=== PATIENT | female | born 1945 | race Caucasian/White ===

== ENCOUNTER 2020-04-17 11:15 | Outpatient (CLI) | payer MEDICARE, SELFPAY ==
--- NOTE | ~2020-04-17 | XR_ITS ---
EXAMINATION: XR knee LT 3V DATE: 04/17/2020 11:46 INDICATION: Left knee pain. TECHNIQUE: 3 views of left knee were obtained. COMPARISON: None. FINDINGS: Bone alignment is normal. No fracture. There is moderate osteoarthritis of medial and ring lofemoral compartments and mild osteoarthritis of lateral compartment. There is chondrocalcinosis of the menisci. No knee joint effusion. IMPRESSION: 1. Moderate left knee osteoarthritis. Reviewed, dictated and finalized at location A.
== END 2020-04-17 11:16 | disposition home or self-care (01) ==
PROVIDERS: PCP Family Medicine; Visit Provider Family Medicine
DX: M25.569 Pain in unspecified knee (principal); M17.12 Unilateral primary osteoarthritis, left knee
CPT/HCPCS: 73562

== ENCOUNTER 2020-04-25 14:01 | Outpatient (CLI) | payer MEDICARE, SELFPAY ==
--- NOTE | ~2020-04-25 | MM_ITS ---
EXAMINATION: MM screening elana BI w adwoa HISTORY: Screening mammogram TECHNIQUE: Craniocaudal and mediolateral oblique 3-D tomosynthesis images were obtained and synthetic 2-D images were generated. CAD analysis was submitted and interpreted. COMPARISON: 04/22/2019, 04/06/2018, 04/03/2017 bilateral digital screening mammogram examinations BREAST PARENCHYMAL COMPOSITION: There are scattered areas of fibroglandular density. FINDINGS: Scattered benign-appearing calcifications are present. Stable mild fibroglandular asymmetry . There is no evidence of suspicious mass, calcification, or architectural distortion to suggest diane gnancy in either breast. There has been no suspicious interval change. IMPRESSION: 1. No mammographic evidence of malignancy. 2. Recommend routine screening mammography in one year. BI-RADS Category 2: Benign finding(s). Reviewed, dictated and finalized at location A.
== END 2020-04-25 14:02 | disposition home or self-care (01) ==
LOC: ANHIMG 14:04
PROVIDERS: PCP Family Medicine; Visit Provider Family Medicine
DX: Z12.31 Encounter for screening mammogram for malignant neoplasm of breast (principal)
CPT/HCPCS: 77063; 77067

== ENCOUNTER 2020-09-18 14:43 | Outpatient (CLI) | payer MEDICARE, SELFPAY | END 2020-09-18 14:44 | disposition home or self-care (01) | LOC: ANHCOVIDVC 14:44 | PROVIDERS: PCP Family Medicine | DX: Z23 Encounter for immunization (principal) | CPT/HCPCS: 0001A; 91300 ==

== ENCOUNTER 2020-10-09 14:45 | Outpatient (CLI) | payer MEDICARE, SELFPAY | END 2020-10-09 14:46 | disposition home or self-care (01) | LOC: ANHCOVIDVC 14:45 | PROVIDERS: PCP Family Medicine | DX: Z23 Encounter for immunization (principal) | CPT/HCPCS: 0002A; 91300 ==

== ENCOUNTER 2021-04-27 15:47 | Outpatient (CLI) | payer MEDICARE, SELFPAY ==
--- NOTE | ~2021-04-27 | MM_ITS ---
EXAMINATION: MM screening leana BI w adwoa HISTORY: Screening mammogram TECHNIQUE: Craniocaudal and mediolateral oblique 3-D tomosynthesis images were obtained and synthetic 2-D images were generated. CAD analysis was submitted and interpreted. COMPARISON: 04/25/2020, 04/20/2019, 04/06/2018 bilateral digital screening mammogram examinations BREAST PARENCHYMAL COMPOSITION: There are scattered areas of fibroglandular density. FINDINGS: Occasional bilateral benign calcifications. There is no evidence of suspicious mass, calcif ication, or architectural distortion to suggest malignancy in either breast. There has been no suspic ious interval change. IMPRESSION: 1. No mammographic evidence of malignancy. 2. Recommend routine screening mammography in one year. BI-RADS Category 2: Benign finding(s). Reviewed, dictated and finalized at location A.
== END 2021-04-27 15:48 | disposition home or self-care (01) ==
LOC: ANHIMG 15:49
PROVIDERS: PCP Family Medicine; Visit Provider Family Medicine
DX: Z12.31 Encounter for screening mammogram for malignant neoplasm of breast (principal)
CPT/HCPCS: 77063; 77067

== ENCOUNTER → 2021-06-11 14:39 | Outpatient (CLI) | payer MEDICARE, SELFPAY ==
--- NOTE | ~2021-06-11 | XR_ITS ---
EXAMINATION: XR_CERV2-3V_CR EXAM DATE: 06/11/2021 15:13 INDICATION: Neck pain worse on right side and radiates into right shoulder after moving furniture x couple weeks ago. TECHNIQUE: Cervical spine frontal, lateral, lateral swimmers, and open-mouth odontoid projections. There is no prior study for comparison. FINDINGS: There is 2-3 mm anterolisthesis C4 on C5, moderate disc disease at that level. The vertebr al bodies are otherwise aligned. Probably moderate to severe loss of the C5-6 and 6-7 disc height. T here is advanced mid cervical facet and uncovertebral joint arthropathy. The odontoid process is inta ct. The lateral masses of C1 line up with C2. Prevertebral soft tissue and pre-dens space are within normal limits. Lung apices are clear. IMPRESSION: Moderate to severe cervical arthropathy and lower cervical disc disease. Reviewed, dictated and finalized at location A. NUE STAMPER IMPRESSION: Moderate to severe cervical arthropathy and lower cervical disc dis ease.
== END ==
PROVIDERS: PCP Family Medicine; Visit Provider Family Medicine
DX: M50.30 Other cervical disc degeneration, unspecified cervical region (principal)
CPT/HCPCS: 72040

== ENCOUNTER → 2021-09-03 14:14 | Outpatient (CLI) | payer MEDICARE, SELFPAY ==
--- NOTE | ~2021-09-03 | XR_ITS ---
XR knee RT 2V 09/03/2021 14:29 Indication: Right knee pain Procedure: 2 views right knee Comparison: Comparison to multiple prior studies sequentially, with oldest reviewed study dated 01/23. Findings: There is moderate osteoarthritis of the right knee. There is chondrocalcinosis. No signific ant joint effusion. No fracture or traumatic malalignment. Impression: 1: Moderate osteoarthritis of the right knee. 2: Chondrocalcinosis. Reviewed, dictated and finalized at location A. ICAL TRIALS SPECIALIST Impression: 1: Moderate osteoarthritis of the right knee. 2: Chondrocalcinosis.
== END ==
PROVIDERS: PCP Nurse Practitioner Adult Health; Visit Provider Nurse Practitioner Adult Health
DX: M17.11 Unilateral primary osteoarthritis, right knee (principal)
CPT/HCPCS: 73560

== ENCOUNTER 2023-01-01 15:34 | Outpatient (CLI) | payer MEDICARE, SELFPAY ==
--- NOTE | ~2023-01-01 | MM_ITS ---
EXAMINATION: MM screening leana BI w adwoa HISTORY: Screening mammogram TECHNIQUE: Craniocaudal and mediolateral oblique 3-D tomosynthesis images were obtained and synthetic 2-D images were generated. CAD analysis was submitted and interpreted. COMPARISON: 04/27/2021, 04/25/2020, 04/20/2019 bilateral screening mammogram examinations BREAST PARENCHYMAL COMPOSITION: There are scattered areas of fibroglandular density. FINDINGS: Occasional bilateral benign calcifications are again noted. There is no evidence of suspici ous mass, calcification, or architectural distortion to suggest malignancy in either breast. There davis s been no suspicious interval change. IMPRESSION: 1. No mammographic evidence of malignancy. 2. Recommend routine screening mammography in one year. BI-RADS Category 2: Benign finding(s). Reviewed, dictated and finalized at location A.
== END 2023-01-01 15:35 | disposition home or self-care (01) ==
LOC: ANHIMG 15:37
PROVIDERS: PCP Family Medicine; Visit Provider Family Medicine
DX: Z12.31 Encounter for screening mammogram for malignant neoplasm of breast (principal)
CPT/HCPCS: 77063; 77067

== ENCOUNTER 2024-02-17 15:12 | Outpatient (CLI) | payer MEDICARE, SELFPAY ==
--- NOTE | ~2024-02-17 | MM_ITS ---
EXAMINATION: MM screening leana BI w adwoa HISTORY: Screening TECHNIQUE: Craniocaudal and mediolateral oblique 3-D tomosynthesis images were obtained and synthetic 2-D images were generated. CAD analysis was submitted and interpreted. COMPARISON: Comparison to multiple prior studies sequentially, with oldest reviewed study dated 04/03. BREAST PARENCHYMAL COMPOSITION: Dense: The breasts are heterogeneously dense, which may obscure small masses FINDINGS: There is no evidence of suspicious mass, calcification, or architectural distortion to sugg est malignancy in either breast. There has been no suspicious interval change. IMPRESSION: 1. No mammographic evidence of malignancy. 2. Recommend routine screening mammography in one year. BI-RADS Category 1: Negative Reviewed, dictated and finalized at location B.
== END 2024-02-17 15:13 | disposition home or self-care (01) ==
PROVIDERS: PCP Family Medicine; Visit Provider Family Medicine
DX: Z12.31 Encounter for screening mammogram for malignant neoplasm of breast (principal)
CPT/HCPCS: 77063; 77067

== ENCOUNTER 2024-06-09 12:52 | Emergency (ER) | payer MEDICARE, SELFPAY ==
--- NOTE | ~2024-06-09 | XR_ITS ---
EXAMINATION: XR wrist LT min 3V DATE: 06/09/2024 13:17 INDICATION: Left wrist pain and swelling TECHNIQUE: Posteroanterior, ulnar deviation, oblique, and lateral views of the left wrist were obtain ed. COMPARISON: none FINDINGS: Nondisplaced intra-articular fracture extending across the radial styloid process involving the artic ular surface at the ulnar side of the scaphoid fossa but without significant fracture gap or incongru ity. No other fractures identified. Chondrocalcinosis in the region of the triangular fibrocartilage complex. Severe osteoarthritis at the first carpometacarpal joint, moderate osteoarthritis at the tri scaphe and first metacarpophalangeal joints and mild at a few of the remaining joints at the carpus a nd visualized left hand. Mild soft tissue edema subjacent edema about the distal left forearm. IMPRESSION: 1. Nondisplaced intra-articular fracture involving the radial styloid process. 2. Moderate to severe osteoarthritis at the radial and the carpus. Reviewed, dictated and finalized at location A. K TECHNICIAN
[2024-06-09 13:06] VITALS: BP 140/65; PULSE 80; RESP 17; TEMP 36.6; O2SAT 100
--- NOTE | 2024-06-09 13:08 | ED.UPPEXIN ---
HPI - Extremity Injury (Upper) General Chief Complaint: Extremity Injury, Upper Stated Complaint: LT Arm injury Source: patient, RN notes reviewed and old records reviewed Mode of arrival: ambulatory Limitations: no limitations History of Present Illness HPI narrative: Patient presents with complaints of left wrist pain. She slipped and fell at the gym 2 days ago, caught self on outstretched left hand. She has had some wrist pain ever since. She reports pain is well controlled with ibuprofen. She retains full range of motion to the affected wrist. She does say certain movements cause pain, but not enough to stop her. She did come to Urgent Care today straight from the gym. She denies other injury and trauma, voices no other concerns or complaints today Related Data Home Medications Medication Instructions Recorded Confirmed aspirin 81 mg tablet,delayed 81 mg PO DAILY 07/13/19 06/09/24 release calcium carbonate (Calcium 600) 600 mg PO DAILY 07/13/19 06/09/24 multivitamin 1 tablet PO DAILY 07/13/19 06/09/24 Allergies Allergy/AdvReac Type Severity Reaction Status Date / Time codeine AdvReac Intermediate Nausea and Verified 06/09/24 13:06 Vomiting latex AdvReac Intermediate SWELLING Verified 06/09/24 13:06 Penicillins AdvReac Intermediate Nausea and Verified 06/09/24 13:06 Vomiting propoxyphene AdvReac Intermediate Nausea and Verified 06/09/24 13:06 Vomiting rofecoxib AdvReac Intermediate Nausea and Verified 06/09/24 13:06 Vomiting Review of Systems Review of Systems: All systems reviewed & are unremarkable except as noted in HPI and below Constitutional: Constitutional: Reports no additional constitutional complaints ENT: Reports system reviewed and no additional complaints, except as documented Cardiovascular: Cardiovascular: Reports no additional cardiovascular complaints Respiratory: Respiratory: Reports no additional respiratory complaints Gastrointestinal: Gastrointestinal: Reports no additional gastrointestinal complaints Musculoskeletal: Musculoskeletal: Reports no additional musculoskeletal complaints, Reports as per HPI, Denies deformity and Reports arthralgias (left wrist) [facility] Past Medical History Medical History (Updated 06/09/24 @ 13:34 by Glenna Snyder APRN) Adverse effect of caffeine Allergies Arthritis Cervical radiculopathy Hypertension Impacted cerumen Osteoarthritis Palpitations Right knee pain Rotator cuff injury Screening mammogram for breast cancer Skin cancer Tachycardia Thyroid disorder screening Urinary incontinence Surgical History Surgical History History of appendectomy History of foot surgery Family History Family History Father Cerebrovascular accident Grandparent Family history of malignant neoplasm Social History Social History Smoking status: Never smoker Alcohol intake: current Substance use: never Substance use type: does not use Living arrangements: with family Occupation/Education: retired Gender identity (if verbalized by the patient): Female Spiritual care concerns: No Agree to blood products: Yes Exam Const: General: cooperative, no acute distress, alert and awake Orientation/consciousness: oriented to person, oriented to place and oriented to time HENMT: Head: normal to inspection Resp: Effort & Inspection: normal respiratory effort and able to speak in complete sentences Auscultation: clear to auscultation bilaterally, no crackles, no rales, no rhonchi and no wheezes Cardio: Palpation: normal PMI Rate: regular rate Rhythm: regular rhythm Heart sounds: S1 normal heart sound present and S2 normal heart sound present Neuro: General: oriented to person, oriented to place and oriented to time Cranial nerves: Yes CN's II-XII intact bilaterally Extrem: Left upper extremity: wrist tenderness of the distal radius, swelling of the dorsal wrist, normal ROM, radial pulse present and ulnar pulse present; no deformity Psych: Appearance: grossly normal Thought process: Normal thought process present Insight: Good insight present (Psych) Judgement: Good judgement present (Psych) Course Course Level of Care: Express Care Visit Vital Signs Vital signs: Vital Signs Temperature 97.8 F 06/09/24 13:06 Pulse Rate 80 06/09/24 13:06 Respiratory Rate 17 06/09/24 13:06 Blood Pressure 140/65 06/09/24 13:06 Pulse Oximetry 100 06/09/24 13:06 Oxygen Delivery Room Air 06/09/24 13:06 Temperature 97.8 F 06/09/24 13:06 Pulse Rate 80 06/09/24 13:06 Respiratory Rate 17 06/09/24 13:06 Blood Pressure 140/65 06/09/24 13:06 Pulse Oximetry 100 06/09/24 13:06 Oxygen Delivery Room Air 06/09/24 13:06 MDM - Extremity Injury (Upper) MDM Narrative Medical decision making narrative: x-ray shows distal radial fracture. Ortho Glass applied, patient advised to follow with Orthopedics. She agrees to do so. Emergency department for any new or worse symptoms Some parts of this dictation were generated by voice recognition software and may contain typographical and/or grammatical inaccuracies. Discharge instructions reviewed with patient, as well as provided in writing per nursing staff. The instructions also include specific and strict return/GO TO THE ER as well as f/u information. All questions have been answered, and the patient deny any further questions with discharge and discharge plan. Differential Diagnosis Differential diagnosis: Likely sprain and strain of wrist and fracture of wrist Medical Records Attestation: I reviewed the patient's medical records. Imaging Data Attestation: I personally reviewed and interpreted this imaging study as follows: My impression: distal radial fx Radiologist's impression: [address] [address] XRay Report Signed Patient: Rachele aSleem : 1945 MR#: [id number] Age: 78 Acct:[id number] Loc: [facility] ADM Date: 06/09/24Attending Dr: Ordering Physician: Glenna Snyder FNP Date of Service: 06/09/24 Procedure(s): XR wrist LT min 3V Accession Number(s): [id number] cc: Glenna Snyder FNP; Leona Lyon PA-C~ EXAMINATION: XR wrist LT min 3V DATE: 06/09/2024 13:17 INDICATION: Left wrist pain and swelling TECHNIQUE: Posteroanterior, ulnar deviation, oblique, and lateral views of the left wrist were obtained. COMPARISON: none FINDINGS: Nondisplaced intra-articular fracture extending across the radial styloid process involving the articular surface at the ulnar side of the scaphoid fossa but without significant fracture gap or incongruity. No other fractures identified. Chondrocalcinosis in the region of the triangular fibrocartilage complex. Severe osteoarthritis at the first carpometacarpal joint, moderate osteoarthritis at the triscaphe and first metacarpophalangeal joints and mild at a few of the remaining joints at the carpus and visualized left hand. Mild soft tissue edema subjacent edema about the distal left forearm. IMPRESSION: 1. Nondisplaced intra-articular fracture involving the radial styloid process. 2. Moderate to severe osteoarthritis at the radial and the carpus. Reviewed, dictated and finalized at location A. FACTURING SUPERVISOR Dictated By: Javier Bahena MD 06/09/24 1319 Signed By: <Electronically signed by Javier Bahena MD in OV> 06/09/24 1322 Discharge Plan Discharge Clinical Impression: Fracture of wrist Qualifiers: Encounter type: initial encounter Fracture type: closed Laterality: left Qualified Code(s): S62.102A - Fracture of unspecified carpal bone, left wrist, initial encounter for closed fracture Patient Disposition: Home, Self-Care Condition: Stable Instructions: Antibiotic Form, Wrist Fracture in Adults (ED) Additional Instructions: Follow-up with orthopedist. Emergency department for new or worse symptoms. Patient Language: Canadian Prescriptions: No Action oxybutynin chloride 10 mg tablet extended release 24hr 10 mg PO DAILY Qty: 30 3RF aspirin 81 mg tablet,delayed release (DR/EC) 81 mg PO DAILY calcium carbonate [Calcium 600] 600 mg calcium (1,500 mg) tablet 600 mg PO DAILY multivitamin Tablet 1 tablet PO DAILY valsartan-hydrochlorothiazide 320-25 mg tablet 1 tablet PO DAILY Qty: 90 0RF spironolactone 25 mg tablet 25 mg PO DAILY Qty: 90 0RF amlodipine 10 mg tablet 10 mg PO DAILY Qty: 90 0RF Follow-up/Referrals: Cj Florence MD [Physician] - 2 Days (left wrist fracture) Leona Lyon PA-C [Primary Care Provider] - Time of Disposition: 13:34
== END 2024-06-09 13:37 | disposition home or self-care (01) ==
PROVIDERS: Emergency Provider Nurse Practitioner Family; PCP Physician Assistant Medical
DX: S62.102A Fracture of unspecified carpal bone, left wrist, initial encounter for closed fracture (principal); W01.0XXA Fall on same level from slipping, tripping and stumbling without subsequent striking against object, initial encounter; Z79.82 Long term (current) use of aspirin; I10 Essential (primary) hypertension
CPT/HCPCS: 29125; 73110; 99214; A4565; G0463

== ENCOUNTER 2024-09-16 14:48 | Emergency (ER) | payer MEDICARE, SELFPAY ==
--- NOTE | ~2024-09-16 | XR_ITS ---
CHEST RADIOGRAPH, PA AND LATERAL CLINICAL HISTORY: cough, fever . COMPARISON: None TECHNIQUE: PA and lateral views of the chest. FINDINGS The cardiomediastinal silhouette is unremarkable. Patchy opacification of the right hilum, for which an early infiltrate is suspected. The remainder of the lungs are clear. IMPRESSION: Right hilar infiltrate. Reviewed, dictated and finalized at location A. IMPRESSION: Right hilar infiltrate.
[2024-09-16 14:56] VITALS: BP 145/69; PULSE 129; RESP 18; TEMP 37.5; O2SAT 96
[2024-09-16 15:10] VITALS: TEMP 39.4
[2024-09-16] MEDS: ACETAMINOPHEN 325 MG TABLET 650 MG PO (15:10)
[2024-09-16 15:19] LABS: EDCOVIDSCREEN Negative (Negative); EDINFLUASCREEN Negative (Negative); EDINFLUBSCREEN Negative (Negative)
--- NOTE | 2024-09-16 15:30 | ED.URI ---
HPI - URI/Sore Throat General Chief Complaint: Upper Respiratory Infection Stated Complaint: flu like Time Seen by Provider: 09/16/24 15:00 Source: patient Mode of arrival: ambulatory (with cane) Limitations: no limitations History of Present Illness HPI Narrative: 79-year-old female presents with complaint of cough, fatigue for 2 days. Denies nausea vomiting diarrhea. No chest pain or shortness of breath. Took 1 dose of Mucinex prior to arrival. Patient was unaware that she had a fever until arriving to [facility]. All systems reviewed and negative except as noted above. Related Data Home Medications ?Medication ?Instructions ?Recorded ?Confirmed ?Last Taken ?Type aspirin 81 mg tablet,delayed 81 mg PO DAILY 07/13/19 09/07/24 Unknown History release calcium carbonate (Calcium 600) 600 mg PO DAILY 07/13/19 09/07/24 Unknown History multivitamin 1 tablet PO DAILY 07/13/19 09/07/24 Unknown History Allergies Allergy/AdvReac Type Severity Reaction Status Date / Time codeine AdvReac Intermediate Nausea and Verified 09/16/24 14:59 Vomiting latex AdvReac Intermediate SWELLING Verified 09/16/24 14:59 Penicillins AdvReac Intermediate Nausea and Verified 09/16/24 14:59 Vomiting propoxyphene AdvReac Intermediate Nausea and Verified 09/16/24 14:59 Vomiting rofecoxib AdvReac Intermediate Nausea and Verified 09/16/24 14:59 Vomiting Review of Systems Review of Systems: CONSTITUTIONAL: Denies fever, chills, or sweats. Reports fatigue. EYES: Denies visual changes, redness, or discharge. ENT: Denies rhinorrhea, congestion, sore throat, or otalgia. CARDIOVASCULAR: Denies chest pain, palpitations, or edema. RESPIRATORY: Reports cough. Denies dyspnea. GASTROINTESTINAL: Denies abdominal pain, nausea, vomiting, or diarrhea. GENITOURINARY: Denies dysuria or hematuria. SKIN: Denies rash or itching. MUSCULOSKELETAL: Denies back pain, joint pain, or myalgia. NEUROLOGIC: Denies headache, numbness, or weakness. PSYCHIATRIC: Denies anxiety or depression. All other systems reviewed are negative, except as documented in HPI. [facility] Past Medical History Medical History (Updated 09/16/24 @ 15:31 by Trisha Deng NP) Hypercalcemia Polycythemia Vitamin D deficiency, unspecified Osteopenia Colles' fracture of left radius Hyperlipidemia Osteoarthritis Skin cancer Hypertension Surgical History Surgical History (Updated 07/29/24 @ 09:54 by Leona Lyon PA-C) History of repair of right rotator cuff Dr Patino, 2019 History of foot surgery bialteral History of appendectomy Family History Family History Father Cerebrovascular accident Grandparent Family history of malignant neoplasm Social History Social History Smoking status: Never smoker Alcohol intake: current Substance use: never Substance use type: does not use Do You Feel Safe in your Home?: Yes Lack of Transportation: No Lack of Food: Never True Current Housing: I Have Housing Concerned About Future Housing: No Difficulty Paying Gas/Electric Bills: No Difficulty Paying for Meds: No Currently Unemployed: No Education: High School Diploma/GED Difficulty w/ Childcare or Family Care: No Living arrangements: with family Occupation/Education: retired Gender identity (if verbalized by the patient): Female Spiritual care concerns: No Agree to blood products: Yes Comments At time of signature, agree with nursing past medical, surgical, social and family history. There is no relevant family history pertinent to the presenting complaint. Exam Narrative: GENERAL: This is a well-nourished, well-developed patient, patient ill-appearing but in no acute distress HEAD: normocephalic, atraumatic. EYES: PERRL. Sclera clear/white. Vision is grossly intact. EARS: External ears normal, auditory canals clear and without drainage, TMs normal without perforation. Hearing grossly intact. NOSE: External nose normal with no obvious nasal discharge, nares without redness, no rhinorrhea. THROAT: Mucous membranes moist, posterior pharynx clear. NECK: Neck supple, non-tender without lymphadenopathy, masses or thyromegaly. CARDIOVASCULAR: tachycardia without murmurs, gallops, or rubs. RESPIRATORY: Clear to auscultation. Breath sounds equal bilaterally. No wheezes, rales, or rhonchi. SKIN: warm, Dry, intact with no suspicious lesions or rash, good texture and turgor. NEURO: awake, alert, and oriented to person, place and time. There were no obvious focal neurologic abnormalities. EXTREMITIES: No joint tenderness, effusion, or edema noted. Course Course Level of Care: Express Care Visit Vital Signs Vital signs: Vital Signs Temperature 37.5 C 09/16/24 14:56 Pulse Rate 129 H 09/16/24 14:56 Respiratory Rate 18 09/16/24 14:56 Blood Pressure 145/69 H 09/16/24 14:56 Pulse Oximetry 96 09/16/24 14:56 Oxygen Delivery Room Air 09/16/24 14:56 Temperature 39.4 C H 09/16/24 15:10 Pulse Rate 129 H 09/16/24 14:56 Respiratory Rate 18 09/16/24 14:56 Blood Pressure 145/69 H 09/16/24 14:56 Pulse Oximetry 96 09/16/24 14:56 Oxygen Delivery Room Air 09/16/24 14:56 reviewed. Heart rate 108, temp 100.8, 96% room air at discharge. MDM - URI/Sore Throat MDM Narrative Medical decision making narrative: Negative COVID and influenza test. Right hilar infiltrate seen on chest x-ray. Will treat patient with antibiotic For pneumonia. 96% room air at discharge. No respiratory distress. Patient is alert, nontoxic. Recommend follow-up with primary care physician 1 week. Will go to the ER for any worsening of symptoms. Please be advised this is a medical document. It is intended for [id number] communication. It is written in medical language and may contain unfamiliar abbreviations or verbiage. Medical documents are intended to carry relevant information, facts as evident, and the clinical opinion of the practitioner at the time of the encounter. This report may have been done utilizing a voice recognition system. Attempts have been made to correct errors. However, there may be uncorrected grammatical, spelling, and recognition errors present. The file time of this note does not necessarily represent the time of service. Lab Data Labs: Lab Results 09/16/24 Range/Units 15:18 POC Influenza A Ag Negative (Negative) POC Influenza B Ag Negative (Negative) POC SARS CoV-2 Ag Negative (Negative) Imaging Data My impression: agree with radiologist Radiologist's impression: CHEST RADIOGRAPH, PA AND LATERAL CLINICAL HISTORY: cough, fever . COMPARISON: None TECHNIQUE: PA and lateral views of the chest. FINDINGS The cardiomediastinal silhouette is unremarkable. Patchy opacification of the right hilum, for which an early infiltrate is suspected. The remainder of the lungs are clear. IMPRESSION: Right hilar infiltrate. Discharge Plan Discharge Clinical Impression: Pneumonia Patient Disposition: Home, Self-Care Condition: Stable Instructions: Antibiotic Form, Pneumonia (ED) Additional Instructions: Your covid and influenza test was negative. Your chest x-ray shows an infiltrate to your lung concerning for pneumoina. Take antibiotics as prescribed until gone. Drink plenty of water to prevent dehydration. Follow up with your doctor in 1 week. If you have chest pain, shortness of breathing, concern for dehydration go to the ER. Patient Language: Dominican Prescriptions: New cefuroxime axetil 500 mg tablet 500 mg PO BID 5 Days Qty: 10 0RF doxycycline hyclate 100 mg capsule 100 mg PO BID 7 Days Qty: 14 0RF No Action aspirin 81 mg tablet,delayed release (DR/EC) 81 mg PO DAILY calcium carbonate [Calcium 600] 600 mg calcium (1,500 mg) tablet 600 mg PO DAILY multivitamin Tablet 1 tablet PO DAILY nitrofurantoin monohyd/m-cryst [Macrobid] 100 mg capsule 100 mg PO Q12H Qty: 20 0RF Rx Instructions: must administer with a meal/food [employer] 3 billion cell capsule 1 cap PO .QD Qty: 30 0RF valsartan-hydrochlorothiazide 320-25 mg tablet 1 tablet PO DAILY Qty: 90 1RF amlodipine 10 mg tablet 10 mg PO DAILY Qty: 90 1RF spironolactone 25 mg tablet 25 mg PO DAILY Qty: 90 1RF Follow-up/Referrals: Leona Lyon PA-C [Primary Care Provider] - Time of Disposition: 15:37
[2024-09-16 15:36] VITALS: PULSE 108; TEMP 38.2; O2SAT 96
[2024-09-16 15:37] VITALS: TEMP 38.2
--- OUTSIDE RECORDS SUMMARY | 2024-09-16 16:36 | XMS_ITS | Clinical Summary ---
Author Organization [facility] Address [address] [place] [address] Care Team Providers Care Display Carver Name Role Phone Unavailable Primary Care Provider Unavailabl e Source Comments [facility],non-owned Affiliates and Associated Physician Practices is amultiple site organization consisting of ambulatory clinics and hospital sitesin [place], [place] and [place]. This disclosure is being madepursuant to the Care Everywhere program and may not contain all information available regarding this patient. Last updated 18.[facility] Encounters Date Type Department Care Team Description 06/22/2024 Lab Requisition [facility] - DermPath Lab [address] [facility] [place] [phone] Margo Mcguire PA Neoplasm of uncertain behavior of skin from Last 3 Months Social History Tobacco Use Types Packs/Day Years Used Date Smoking Tobacco: Never Assessed Sex and Gender Information Value Date Recorded Sex Assigned at Not on file Gender Identity Not on file Sexual Orientation Not on file Plan of Treatment Health Maintenance Due Date Last Done Comments BONE DENSITY TESTING 1945 DTAP/TDAP/TD VACCINES (1 - Tdap) 1963 PNEUMOCOCCAL VACCINE 50+ (1 of 1 - PCV) 1994 ZOSTER VACCINE (1 of 2) 1994 Respiratory Syncytial Virus (RSV) Vaccine Pt: or over 60 yrs (1 - 1-dose 75+ series) 2019 COVID-19 VACCINE ( - 2023-2 5 season) 2024 INFLUENZA VACCINE (#1) 2024 DEPRESSION SCREENING 07/07/2024 MEDICARE AWV CALENDAR YEAR 2024 HEPATITIS B VACCINE Aged Out No longe r eligible based on patient's age to complete this topic HIB VACCINE Aged Out No longer eligi ble based on patient's age to complete this topic HPV VACCINE Aged Out No longer eligi ble based on patient's age to complete this topic MENINGOCOCCAL (Group B) VACC INE SHARED DECISION-MAKING Aged Out No longer eligibl e based on patient's age to complete this topic MENINGOCOCCAL GROUPS A/C/Y/W VACCINE Aged Out No longer eligible b ased on patient's age to complete this topic Procedures Procedure Name Priority Date/Time Associated Diagnosis Comments DERMATOPATHOLOGY Routine 06/22/2024 12:0 0 AM FOLLOW UP SPECIALIST Neoplasm of uncertain behavior of skin from Last 3 Months Results * DERMATOPATHOLOGY (06/22/2024 12:00 AM FOLLOW UP SPECIALIST) Case Report Dermatopathology Report Case: [id number] Authorizing Provider: Margo Mcguire PA Collected: 06/22/2024 12:00 AM Ordering Location: [facility] - Received: 06/23/2024 11:57 AM DermPath Lab Pathologist: Farnaz Salguero MD Specimen: Skin, right posterior upper arm 4 3:36 PM [facility] DERMATOPATHOLOGY LABORATORY Final Diagnosis Specimen A. SKIN, right posterior upper arm: BASAL CELL CARCINOMA, INFILTRATIVE PATTERN (C44.612) 4 3:36 PM [facility] DERMATOPATHOLOGY LABORATORY Clinical History Squamous Cell Carcinoma 4 3:36 PM [facility] DERMATOPATHOLOGY LABORATORY Gross Description Specimen A: Received is one formalin filled container labeled with the patient's name and designated right posterior upper arm. The specimen consists of a shave biopsy measuring 8x7x1 mm. Jar 0. 4 3:36 PM [facility] DERMATOPATHOLOGY LABORATORY Microscopic Description Specimen A. SKIN, right posterior upper arm: Within the dermis there are nodular aggregates of basaloid cells associated with fibromyxoid stroma and epithelial-stromal clefts. At the advancing margin of the neoplasm, there are smaller angulated nests that infiltrate the dermis. 4 3:36 PM [facility] DERMATOPATHOLOGY LABORATORY Disclaimer An external and internal positive and negative controls are appropriate for the histochemical, immunohistochemical and immunofluorescence stain(s) in this case (if any), except where stated explicitly. The performance characteristics of the stain(s) cited in this report were developed and its performance characteristic determined by the Dermatopathology Laboratory at [facility], directed by Dr. Grady Vargas. These tests need not be, and therefore are not, approved by the [place] Food and Drug Administration. The tests are used for clinical purposes. Billing Codes Specimen Charges Stain Charges 99748 1 4 3:36 PM FOLLOW UP SPECIALIST DERMATOPATHOLOGY LABORATORY Embedded Images 4 3:36 PM FOLLOW UP SPECIALIST DERMATOPATHOLOGY LABORATORY Pathology/Cytolog y TISSUE SPECIMEN FROM SKIN / Unknown 06/22/2024 06/23/2024 11:57 AM FOLLOW UP SPECIALIST [facility] - PATHOLOGY/CYT OLOGY ORDERABLES DERMATOPATHOLOGY LABORATORY [facility] - Department of Dermatology [address], [address] [phone] from Last 3 Months Rachele Saleem Personal/Family Self 1945
--- OUTSIDE RECORDS SUMMARY | 2024-09-16 16:36 | XMS_ITS | Clinical Summary ---
Author Organization [facility] Address [address] [place] [address] Care Team Providers Care Drawer Upfitter Name Role Phone To Horan MD Unavailable [phone] None, Provider Primary Care Provider Unavaila ble Allergies Active Allergy Reactions Criticality Noted Date Comments Penicillins Rash Low 06/17/2012 Medications valsartan-hydro chlorothiazide 320-25 MG tablet Take 1 tablet by mouth daily. 9 Active Multiple Vitamin (MULTI-VITAMIN DAILY OR)Indications: one a day 50 plus Take 1 capsule by mouth. Active amlodipine 10 MG tablet Take 1 tablet (10 mg total) by mouth daily. 9 Active Calcium Carbonate-Vitam in D (CALCIUM-VITAMI N D) 600-125 MG-UNIT Tab Take 1 tablet by mouth daily. 9 Active aspirin EC 81 MG tablet Take 1 tablet (81 mg total) by mouth daily. 9 Active Cholecalciferol (VITAMIN D) 1000 UNIT tablet Take 1 tablet (1,000 Units total) by mouth daily. 9 Active spironolactone 25 MG tablet Take 1 tablet (25 mg total) by mouth daily. 90 tablet 1 9 Active mupirocin 2 % ointment Apply topically daily. 0 Active albuterol sulfate HFA 108 (90 Base) MCG/ACT inhaler INHALE 2 PUFFS BY MOUTH EVERY 4 HOURS NEEDED FOR COUGH 2 Active azithromycin (ZITHROMAX Z-DAMIAN) 250 MG tabletIndicatio ns:Acute non-recurrent frontal sinusitis Take 2 tablets by mouth on day one then 1 daily for four days. 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 Deformity of metatarsal 01/23/2016 Dyshidrotic dermatitis 01/23/2016 Porokeratosis 01/23/2016 Ingrown toenail 05/05/2014 Onychomycosis 05/05/2014 Hypertrophic condition of skin 07/20/2013 Plantar fasciitis 08/26/2012 Cellulitis of foot excluding toe 07/23/2012 Acquired deformity of joint of foot, unspecified laterality 07/05/2012 Acquired hallux valgus, unspecified laterality 1 09/01/2011 Capsulitis 07/01/2012 Foot pain 06/17/2012 Hammer toe 06/17/2012 Hypertension Resolved Problems Problem Noted Date Diagnosed Date Resolved Date Postoperative examination 08/06/2012 Encounter for preventive health examination 06/17/2012 03/17/2020 Immunizations Name Administration Dates Next Due Fluzone High Dose - >Age 65 (Prefilled Syringe) 03/15/2018,02/26/2017,04/01/2016,2013 Pneumococcal (Prevnar 13) 05/15/2017 Pneumovax 23 25 Mcg/0.5Ml Ij Inj 10/05/2018 Zoster (Zostavax) 69330 Unt/0.65Ml 03/07/2019 Family History Medical History Relation Comments Stroke Father Cancer Maternal Aunt Cancer Maternal Grandmother Cancer Maternal Uncle Heart Attack Mother Heart Disease Mother Cancer Son Hypertension Son Relation Status Comments Father (Age 48) Maternal Aunt Maternal Grandfather (Age 70) Maternal Grandmother (Age 85) Maternal Uncle Mother (Age 72) Paternal Grandfather (Age 85) Paternal Grandmother (Age 80) Sister Alive Son Social History Tobacco Use Types Packs/Day Years Used Date Smoking Tobacco: Never Smokeless Tobacco: Never Tobacco Cessation:Counseling Given: No Alcohol Use Standard Drinks/Week Comments Yes 0 (1 standard drink = 0.6 oz pur e alcohol) AUDIT-C Answer Date Recorded Frequency of Alcohol Consumption Monthly or less 11/24/2019 Average Number of Drinks 1 or 2 020 Frequency of Binge Drinking Never 11/05 PHQ-2 Answer Date Recorded PHQ-2 Score - If the patient scores above 3, please move on to questions 3-9 0 01/31/2020 Education Answer Date Recorded What is the highest level of school you have completed or the highest degree you have received? Some college, no degree 10/02/2018 Comments No Sex and Gender Information Value Date Recorded Sex Assigned at Female 07/16/2018 4:44 PM PICKLER HELPER Legal Sex Female 8:20 PM CDT Gender Identity Female 07/16/2018 4:44 PM PICKLER HELPER Sexual Orientation Straight 07/16/2018 4: 44 PM PICKLER HELPER Occupation Industry Job Start Date Job End Date Not on file Not on file Not on file Not on file Last Filed Vital Signs Vital Sign Reading Time Taken Comments Blood Pressure 137/74 08/08/2022 2:31 PM PICKLER HELPER Pulse 89 08/08/2022 2:31 PM PICKLER HELPER Temperature 37.6 C (99.6 F) 06/10/2022 3:26 PM PICKLER HELPER Respiratory Rate 20 06/10/2022 3:26 PM PICKLER HELPER Oxygen Saturation 99% 08/08/2022 2:31 PM PICKLER HELPER Inhaled Oxygen Concentration - - Weight 62.6 kg (138 lb) 08/08/2022 2:31 PM PICKLER HELPER Height 157.5 cm (5' 2 ) 08/08/2022 2:31 PM PICKLER HELPER Body Mass Index 25.24 08/08/2022 2:31 PM PICKLER HELPER Plan of Treatment Health Maintenance Due Date Last Done Comments Hepatitis C 1962 DTaP, Tdap and Td Vaccines (1 - Tdap) 1963 Annual Medicare Wellness Visit 2009 Dexa Scan (General) 2009 Zoster Vaccines (2 of 3) 05/02/2019 03/07/2019 RSV Immunization or 60+ Years (1 - 1-dose 75+ series) 2019 COVID-19 Vaccine ( - season) 2024 Influenza Adult (#1) 2024 03/15/2018, 02/26/2017, 04/01/2016, Additional history exists Colorectal Cancer Screening Colonoscopy (10 Years) Discontinued 06/05/2018 Pneumococcal Vaccine: 65+ Years Completed 10/05/2018, 05/15/2017 Meningococcal B Vaccine Aged Out No l onger eligible based on patient's age to complete this topic Meningococcal Vaccine Aged Out No veda rita eligible based on patient's age to complete this topic RSV Immunizations Under 20 Months Aged Out No longer eligible based on patient's age to complete this topic Procedures Procedure Name Priority Date/Time Associated Diagnosis Comments COLONOSCOPY GENERIC (SCAN ORDER) Routine 06/05/2018 from Last 3 Months or Most Recently Relevant to Health Maintenance Results * COLONOSCOPY (06/05/2018) us Documents Scanned SCANNING Final Result from Last 3 Months or Most Recently Relevant to Health Maintenance Insurance Care Teams Drawer Upfitter Relationship Specialty Start Date End Date None, Provider, PCP - General UNKNOWN PHYSICIAN SPECIALTY 06/10/22 To Horan MD [facility]. [facility] [address] [place] [address] [place] [employer] Manager CARDIOVASCULAR DISEASE 12/02/18
--- OUTSIDE RECORDS SUMMARY | 2024-09-16 16:36 | XMS_ITS | Encounter Summary ---
Author Organization [facility] Address [address] [place] [address] Care Team Providers Care Outside Plant Supervisor Name Role Phone Unavailable Primary Care Provider Unavailabl e Encounter Details Date Type Department Care Team (Late st Contact Info) Description 06/22/2024 Lab Requisition [facility] - DermPath Lab [address] [facility] [place], [place] [phone] Margo Mcguire PA [address] [place] [phone] Neoplasm of uncertain behavior of skin Social History Tobacco Use Types Packs/Day Years Used Date Smoking Tobacco: Never Assessed Sex and Gender Information Value Date Recorded Sex Assigned at Not on file Gender Identity Not on file Sexual Orientation Not on file documented as of this encounter Plan of Treatment Not on file documented as of this encounter Procedures Procedure Name Priority Date/Time Associated Diagnosis Comments DERMATOPATHOLOGY Routine 06/22/2024 12:0 0 AM CITY SUPERINTENDENT Neoplasm of uncertain behavior of skin documented in this encounter Results * DERMATOPATHOLOGY (06/22/2024 12:00 AM CITY SUPERINTENDENT) Case Report Dermatopathology Report Case: [id number] Authorizing Provider: Margo Mcguire PA Collected: 06/22/2024 12:00 AM Ordering Location: [facility] Physician [facility] - Received: 06/23/2024 11:57 AM DermPath Lab Pathologist: Farnaz Salguero MD Specimen: Skin, right posterior upper arm 4 3:36 PM CITY SUPERINTENDENT DERMATOPATHOLOGY LABORATORY Final Diagnosis Specimen A. SKIN, right posterior upper arm: BASAL CELL CARCINOMA, INFILTRATIVE PATTERN (C44.612) 4 3:36 PM CITY SUPERINTENDENT DERMATOPATHOLOGY LABORATORY Clinical History Squamous Cell Carcinoma 4 3:36 PM [facility] DERMATOPATHOLOGY LABORATORY Gross Description Specimen A: Received is one formalin filled container labeled with the patient's name and designated right posterior upper arm. The specimen consists of a shave biopsy measuring 8x7x1 mm. Jar 0. 3:36 PM [facility] DERMATOPATHOLOGY LABORATORY Microscopic Description Specimen A. SKIN, right posterior upper arm: Within the dermis there are nodular aggregates of basaloid cells associated with fibromyxoid stroma and epithelial-stromal clefts. At the advancing margin of the neoplasm, there are smaller angulated nests that infiltrate the dermis. 3:36 PM [facility] DERMATOPATHOLOGY LABORATORY Disclaimer An external and internal positive and negative controls are appropriate for the histochemical, immunohistochemical and immunofluorescence stain(s) in this case (if any), except where stated explicitly. The performance characteristics of the stain(s) cited in this report were developed and its performance characteristic determined by the Dermatopathology Laboratory at [facility], directed by Dr. Grady Vargas. These tests need not be, and therefore are not, approved by the [place] Food and Drug Administration. The tests are used for clinical purposes. Billing Codes Specimen Charges Stain Charges 51776 1 4 3:36 PM CITY SUPERINTENDENT DERMATOPATHOLOGY LABORATORY Embedded Images 4 3:36 PM [facility] DERMATOPATHOLOGY LABORATORY Pathology/Cytolog y TISSUE SPECIMEN FROM SKIN / Unknown 06/22/2024 06/23/2024 11:57 AM CITY SUPERINTENDENT [facility] - PATHOLOGY/CYT OLOGY ORDERABLES DERMATOPATHOLOGY LABORATORY [facility] - Department of Dermatology [address] [phone] documented in this encounter Visit Diagnoses Diagnosis Neoplasm of uncertain behavior of skin documented in this encounter
--- OUTSIDE RECORDS SUMMARY | 2024-09-16 16:36 | XMS_ITS | Referral Summary ---
Author Organization [facility] Address [address] [place] [address] Care Team Providers Care Wellness Guide Name Role Phone Unavailable Primary Care Provider Unavailabl e Source Comments [facility] [employer],non-owned Affiliates and Associated Physician Practices is amultiple site organization consisting of ambulatory clinics and hospital sitesin [place], [place], [place] and [place]. This disclosure is being madepursuant to the Care Everywhere program and may not contain all information available regarding this patient. Last updated 18.[facility] [employer] Encounters Date Type Department Care Team Description 06/22/2024 Lab Requisition [facility] - DermPath Lab [address] [facility] [place] [phone] Margo Mcguire PA Neoplasm of uncertain behavior of skin from Last 3 Months Social History Tobacco Use Types Packs/Day Years Used Date Smoking Tobacco: Never Assessed Sex and Gender Information Value Date Recorded Sex Assigned at Not on file Gender Identity Not on file Sexual Orientation Not on file Plan of Treatment Not on file Procedures Procedure Name Priority Date/Time Associated Diagnosis Comments DERMATOPATHOLOGY Routine 06/22/2024 12:0 0 AM LINEMAN A CLASS Neoplasm of uncertain behavior of skin from Last 3 Months Results * DERMATOPATHOLOGY (06/22/2024 12:00 AM LINEMAN A CLASS) Case Report Dermatopathology Report Case: [id number] Authorizing Provider: Margo Mcguire PA Collected: 06/22/2024 12:00 AM Ordering Location: [facility] Physician [facility] - Received: 06/23/2024 11:57 AM DermPath Lab Pathologist: Farnaz Salguero MD Specimen: Skin, right posterior upper arm 3:36 PM LINEMAN A CLASS DERMATOPATHOLOGY LABORATORY Final Diagnosis Specimen A. SKIN, right posterior upper arm: BASAL CELL CARCINOMA, INFILTRATIVE PATTERN (C44.612) 4 3:[address] [facility] DERMATOPATHOLOGY LABORATORY Clinical History Squamous Cell Carcinoma 4 3:[address] [facility] DERMATOPATHOLOGY LABORATORY Gross Description Specimen A: Received is one formalin filled container labeled with the patient's name and designated right posterior upper arm. The specimen consists of a shave biopsy measuring 8x7x1 mm. Jar 0. 4 3:[address] [facility] DERMATOPATHOLOGY LABORATORY Microscopic Description Specimen A. SKIN, right posterior upper arm: Within the dermis there are nodular aggregates of basaloid cells associated with fibromyxoid stroma and epithelial-stromal clefts. At the advancing margin of the neoplasm, there are smaller angulated nests that infiltrate the dermis. 4 3:[address] [facility] DERMATOPATHOLOGY LABORATORY Disclaimer An external and internal positive and negative controls are appropriate for the histochemical, immunohistochemical and immunofluorescence stain(s) in this case (if any), except where stated explicitly. The performance characteristics of the stain(s) cited in this report were developed and its performance characteristic determined by the Dermatopathology Laboratory at [facility], directed by Dr. Grady Vargas. These tests need not be, and therefore are not, approved by the [place] Food and Drug Administration. The tests are used for clinical purposes. Billing Codes Specimen Charges Stain Charges 67389 1 4 3:[address] [facility] DERMATOPATHOLOGY LABORATORY Embedded Images 4 3:[address] [facility] DERMATOPATHOLOGY LABORATORY Pathology/Cytolog y TISSUE SPECIMEN FROM SKIN / Unknown 06/22/2024 06/23/2024 11:57 AM LINEMAN A CLASS [facility] - PATHOLOGY/CYT OLOGY ORDERABLES DERMATOPATHOLOGY LABORATORY [facility] - Department of Dermatology [address], [address] [phone] from Last 3 Months Rachele Saleem Personal/Family Self 1945
--- OUTSIDE RECORDS SUMMARY | 2024-09-16 16:36 | XMS_ITS | Patient Health Summary ---
Author Organization [facility] [employer] Address [address] [place] [address] Care Team Providers Care Hydraulic Blocker Name Role Phone Unavailable Primary Care Provider Unavailabl e Note from [facility] [employer],non-owned Affiliates and Associated Physician Practices is amultiple site organization consisting of ambulatory clinics and hospital sitesin [place], [place], [place] and [place]. This disclosure is being madepursuant to the Care Everywhere program and may not contain all information available regarding this patient. Last updated 18.[facility] [employer] Social History Tobacco Use Types Packs/Day Years Used Date Smoking Tobacco: Never Assessed Sex and Gender Information Value Date Recorded Sex Assigned at Not on file Gender Identity Not on file Sexual Orientation Not on file Procedures * DERMATOPATHOLOGY(Performed 06/22/2024) Performed for Neoplasm of uncertain behavior of skin Results * DERMATOPATHOLOGY (06/22/2024 12:00 AM GREY GOODS EXAMINER) Case Report Dermatopathology Report Case: [id number] Authorizing Provider: Margo Mcguire PA Collected: 06/22/2024 12:00 AM Ordering Location: [facility] - Received: 06/23/2024 11:57 AM DermPath Lab Pathologist: Farnaz Salguero MD Specimen: Skin, right posterior upper arm 4 3:36 PM [facility] DERMATOPATHOLOGY LABORATORY Final Diagnosis Specimen A. SKIN, right posterior upper arm: BASAL CELL CARCINOMA, INFILTRATIVE PATTERN (C44.612) 4 3:36 PM GREY GOODS EXAMINER DERMATOPATHOLOGY LABORATORY Clinical History Squamous Cell Carcinoma 4 3:36 PM [facility] DERMATOPATHOLOGY LABORATORY Gross Description Specimen A: Received is one formalin filled container labeled with the patient's name and designated right posterior upper arm. The specimen consists of a shave biopsy measuring 8x7x1 mm. Jar 0. 12/19/202 4 3:36 PM [facility] DERMATOPATHOLOGY LABORATORY Microscopic Description Specimen A. SKIN, right posterior upper arm: Within the dermis there are nodular aggregates of basaloid cells associated with fibromyxoid stroma and epithelial-stromal clefts. At the advancing margin of the neoplasm, there are smaller angulated nests that infiltrate the dermis. 4 3:36 PM [facility] DERMATOPATHOLOGY LABORATORY Disclaimer An external and internal positive and negative controls are appropriate for the histochemical, immunohistochemical and immunofluorescence stain(s) in this case (if any), except where stated explicitly. The performance characteristics of the stain(s) cited in this report were developed and its performance characteristic determined by the Dermatopathology Laboratory at [facility], directed by Dr. Grady Vargas. These tests need not be, and therefore are not, approved by the [place] Food and Drug Administration. The tests are used for clinical purposes. Billing Codes Specimen Charges Stain Charges 86884 1 4 3:36 PM [facility] DERMATOPATHOLOGY LABORATORY Embedded Images 4 3:36 PM [facility] DERMATOPATHOLOGY LABORATORY Pathology/Cytolog y TISSUE SPECIMEN FROM SKIN / Unknown 06/22/2024 06/23/2024 11:57 AM GREY GOODS EXAMINER [facility]o [facility] LAB - PATHOLOGY/CYT OLOGY ORDERABLES DERMATOPATHOLOGY LABORATORY [facility] - Department of Dermatology [facility] [address] [place] [address], [address] [phone]
== END 2024-09-16 15:43 | disposition home or self-care (01) ==
PROVIDERS: Emergency Provider Nurse Practitioner Family; PCP Physician Assistant Medical
DX: J18.9 Pneumonia, unspecified organism (principal); I10 Essential (primary) hypertension; E78.5 Hyperlipidemia, unspecified; Z85.828 Personal history of other malignant neoplasm of skin; Z20.822 Contact with and (suspected) exposure to COVID-19
CPT/HCPCS: 71046; 87426; 87804; 99213; A9270; G0463

== ENCOUNTER 2025-03-08 15:06 | Outpatient (CLI) | payer MEDICARE, SELFPAY ==
--- NOTE | ~2025-03-08 | MM_ITS ---
EXAMINATION: MM screening [facility] BI w adwoa HISTORY: Screening TECHNIQUE: Craniocaudal and mediolateral oblique 3-D tomosynthesis images were obtained and synthetic 2-D images were generated. CAD analysis was submitted and interpreted. COMPARISON: Mammograms from 02/17/2024 and 01/01/2023 BREAST PARENCHYMAL COMPOSITION: There are scattered areas of fibroglandular density. FINDINGS: There is no evidence of suspicious mass, calcification, or architectural distortion to suggest malignancy. There has been no suspicious interval change. IMPRESSION: 1. No mammographic evidence of malignancy. Recommend routine screening mammography in one year. BI-RADS Category 2: Benign finding(s) Reviewed, dictated and finalized at location Q. IMPRESSION: 1. No mammographic evidence of malignancy. Recommend routine screening mammogra phy in one year. BI-RADS Category 2: Benign finding(s)
--- OUTSIDE RECORDS SUMMARY | 2025-03-08 15:17 | XMS_ITS | Clinical Summary ---
Author Organization [facility] Address [address] [place] [address] Care Team Providers Care Title Lawyer Name Role Phone Unavailable Primary Care Provider Unavailabl e Source Comments [facility],non-owned Affiliates and Associated Physician Practices is amultiple site organization consisting of ambulatory clinics and hospital sitesin [place], [place], [place]. This disclosure is being madepursuant to the Care Everywhere program and may not contain all information available regarding this patient. Last updated 18.[facility] Social History Tobacco Use Types Packs/Day Years Used Date Smoking Tobacco: Never Assessed Comments Unknown Sex and Gender Information Value Date Recorded Sex Assigned at Not on file Legal Sex Female 2:25 PM GEOTHERMAL HVAC TECHNICIAN Gender Identity Not on file Sexual Orientation [...] VACCINE ( - 2023-2 5 season) 2024 DEPRESSION SCREENING 07/07/2024 MEDICARE AWV CALENDAR YEAR 2024 INFLUENZA VACCINE (#1) 2025 HEPATITIS B VACCINE Aged Out No longe [...] on patient's age to complete this topic Insurance [facility] MANAGED MEDICARE ADV
--- OUTSIDE RECORDS SUMMARY | 2025-03-08 15:17 | XMS_ITS | Encounter Summary ---
Author Organization [facility] Address [address] [place] [address] Care Team Providers Care Rn Outpatient Surgery Name Role Phone Unavailable Primary Care Provider Unavailabl e Encounter Details Date Type Department Care Team (Late st Contact Info) Description 06/22/2024 Lab Requisition [facility] - DermPath Lab [address] [place] [id number] Margo Mcguire PA [address] [place] [id number] Neoplasm of uncertain behavior of skin Social History Tobacco Use Types Packs/Day Years Used Date Smoking Tobacco: Never Assessed Comments Unknown Sex and Gender Information Value Date Recorded Sex Assigned at Not on file Legal Sex Female 2:25 PM SLOT SHIFT SUPERVISOR Gender Identity Not on file Sexual Orientation Not on file documented as of this encounter Plan of Treatment Not on file documented as of this encounter Procedures Procedure Name Priority Date/Time Associated Diagnosis Comments DERMATOPATHOLOGY Routine 06/22/2024 12:0 0 AM SLOT SHIFT SUPERVISOR Neoplasm of uncertain behavior of skin documented in this encounter Results * DERMATOPATHOLOGY (06/22/2024 12:00 AM SLOT SHIFT SUPERVISOR) Case Report Dermatopathology Report Case: [id number] Authorizing Provider: Margo Mcguire PA Collected: 06/22/2024 12:00 AM Ordering Location: [facility] - Received: 06/23/2024 11:57 AM DermPath Lab Pathologist: Farnaz Salguero MD Specimen: Skin, right posterior upper arm 4 3:36 PM SLOT SHIFT SUPERVISOR DERMATOPATHOLOGY LABORATORY Final Diagnosis Specimen A. SKIN, right posterior upper arm: BASAL CELL CARCINOMA, INFILTRATIVE PATTERN (C44.612) 4 3:36 PM SLOT SHIFT SUPERVISOR DERMATOPATHOLOGY LABORATORY at 1536 SLOT SHIFT SUPERVISOR Clinical History Squamous Cell Carcinoma 4 3:36 PM [facility]AT[facility] Gross Description Specimen A: Received is one formalin filled container labeled with the patient's name and designated right posterior upper arm. The specimen consists of a shave biopsy measuring 8x7x1 mm. Jar 0. 4 3:36 PM [facility] DERMATOPATHOLOGY [facility]ORATORY Microscopic Description Specimen A. SKIN, right posterior upper arm: Within the dermis there are nodular aggregates of basaloid cells associated with fibromyxoid stroma and epithelial-stromal clefts. At the advancing margin of the neoplasm, there are smaller angulated nests that infiltrate the dermis. 4 3:36 PM [facility] DERMATOPATHOLOGY [facility]ORAT[facility] Disclaimer An external and internal positive and negative controls are appropriate for the histochemical, immunohistochemical and immunofluorescence stain(s) in this case (if any), except where stated explicitly. The performance characteristics of the stain(s) cited in this report were developed and its performance characteristic determined by the Dermatopathology Laboratory at [facility], directed by Dr. Grady Vargas. These tests need not be, and therefore are not, approved by the [place] Food and Drug Administration. The tests are used for clinical purposes. Billing Codes Specimen Charges Stain Charges 75764 1 4 3:36 PM [facility]ERMATOPATH[facility] Embedded Images 4 3:36 PM [facility] Pathology/Cytolog y TISSUE SPECIMEN FROM SKIN / Unknown 06/22/2024 06/23/2024 11:57 AM SLOT SHIFT SUPERVISOR [facility] - PATHOLOGY/CYTOLOGY OR DERABLES Final Result DERMATOPATHOLOGY LABORATORY [facility] - Department of Dermatology [address], [address] [phone] documented in this encounter Visit Diagnoses Diagnosis Neoplasm of uncertain behavior of skin documented in this encounter
--- OUTSIDE RECORDS SUMMARY | 2025-03-08 15:17 | XMS_ITS | Clinical Summary ---
Author Organization [facility] Address [address] [place] [address] Care Team Providers Care Restrike Hammer Operator Name Role Phone To Horan MD Unavailable None, Provider Primary Care Provider Unavaila ble [...] for preventive health examination 06/17/2012 03/17/2020 Immunizations Immunization Administration Dates Next Due Fluzone High Dose - >Age 65 (Prefilled Syringe) 03/15/2018,02/26/2017,04/01/2016,2013 Pneumococcal (Prevnar 13) 05/15/2017 Pneumovax 23 25 Mcg/0.5Ml Ij Inj 10/05/2018 Zoster (Zostavax) 53666 Unt/0.65Ml 03/07/2019 Family History Medical History Relation [...] Sex Assigned at Female 07/16/2018 4:44 PM FOSTER WINDER Legal Sex Female 8:20 PM CDT Gender Identity Female 07/16/2018 4:44 PM FOSTER WINDER Sexual Orientation Straight 07/16/2018 4: 44 PM FOSTER WINDER Occupation Industry Job Start Date Job End Date Not on file Not on file Not on file Not on file Last Filed Vital Signs Vital Sign Reading Time Taken Comments Blood Pressure 137/74 08/08/2022 2:31 PM FOSTER WINDER Pulse 89 08/08/2022 2:31 PM FOSTER WINDER Temperature 37.6 C (99.6 F) 06/10/2022 3:26 PM FOSTER WINDER Respiratory Rate 20 06/10/2022 3:26 PM FOSTER WINDER Oxygen Saturation 99% 08/08/2022 2:31 PM FOSTER WINDER Inhaled Oxygen Concentration - - Weight 62.6 kg (138 lb) 08/08/2022 2:31 PM FOSTER WINDER Height 157.5 cm (5' 2) 08/08/2022 2:31 PM FOSTER WINDER Body Mass Index 25.24 08/08/2022 2:31 PM FOSTER WINDER Plan of Treatment Health Maintenance Due Date Last Done Comments DTaP, Tdap and Td Vaccines ( 1 - Tdap) 1964 Annual Medicare Wellness Visit 2009 Dexa Scan (General) 2009 Zoster Vaccines (2 of 3) 05/02/2019 03/07/2019 RSV Immunization or 60+ Years (1 - 1-dose 75+ series) 2019 COVID-19 Vaccine ( - 2023-2 5 season) 2024 Colorectal Cancer Screening Colonoscopy (10 Years) Discontinued 06/05/2018 Pneumococcal Vaccine: 50+ Years Completed 10/05/2018, 05/15/2017 Meningococcal B Vaccine [...] Relevant to Health Maintenance Insurance Care Teams Restrike Hammer Operator Relationship Specialty Start Date End Date None, Provider, PCP - General UNKNOWN PHYSICIAN SPECIALTY 06/10/22 To Horan MD [facility]. [address] [address] [place] Senior Military Analyst CARDIOVASCULAR DISEASE 12/02/18
== END 2025-03-08 15:07 | disposition home or self-care (01) ==
LOC: ANHFOHIMG 15:07
PROVIDERS: PCP Physician Assistant Medical; Visit Provider Physician Assistant Medical
DX: Z12.31 Encounter for screening mammogram for malignant neoplasm of breast (principal)
CPT/HCPCS: 77063; 77067